=== PATIENT | female | born 1970 | race African-American/Black ===

== ENCOUNTER 2018-09-05 16:03 | Emergency (ER) | payer OTHER ==
[~2018-09-05] VITALS: Ht 165.1 cm; Wt 89.8 kg
[2018-09-05] MEDS ORDERED: NORVASC5 MG PO (16:13)
[2018-09-05 19:02] LABS: CALCIUM 9.3 mg/dL (8.5-10.1); POTASSIUM 3.9 mmol/L (3.5-5.1)
[2018-09-05 20:32] VITALS: BP 165/91
== END 2018-09-05 20:33 | disposition home or self-care (01) ==
LOC: ER 16:03
PROVIDERS: Physician Assistant
DX: M79.9 Soft tissue disorder, unspecified (principal); I10 Essential (primary) hypertension